=== PATIENT | female | born 1965 | race Caucasian/White ===

== ENCOUNTER → 2017-01-20 | Day surgery (SDC) | payer BC ==
[~2017-01-20] MED LIST: GLUC1TAB44 PO; HYDROmorphone 2 MG/ML VIAL IV PRN; IV RINGERS,LACTATED 1000ML 1,000 ML IV SCH; LIDOCAINE 1% PF 2 ML VIAL. ID PRN; MORPHINE SULFATE 2 MG/ML DISP.SYRIN. IV PRN; ONDANSETRON PF 4 MG/2 ML VIAL. IV PRN; PROCHLORPERAZINE 10 MG/2 ML VIAL. IV PRN; PROPOFOL 20 ML IV ONE; fentaNYL PF VIAL 100 MCG/2 ML VIAL IV PRN
--- NOTE | 2017-01-20 14:06 | PDOC1 ---
History and Physical Date of Admission Date of Admission DATE: 01/20/17 TIME: 14:02 History of Present Illness History of Present Illness 51 y/o female with h/o colon polyps. Last exam 2011; w/o complaints. Past Medical History Musculoskeletal: Osteoarthritis Past Surgical History Past Surgical History: Other (D and C, hemorrhoidectomy) Family History Family History: Cancer (breast, pancreas), Coronary Artery Disease, Diabetes Social History Smoke: No ALCOHOL: occassional Drugs: None Current Medications Current Medications Current Medications Ondansetron HCl (Zofran) 4 mg PRN Q6HRS PRN IV NAUSEA/VOMITING; Start at 07:00; Stop 01/21/17 at 06:59 Fentanyl Citrate (Fentanyl 2ml Vial) 25 mcg PRN Q5MIN PRN IV MILD PAIN; Start 01/20/17 at 07:00; Stop 01/21/17 at 06:59 Fentanyl Citrate (Fentanyl 2ml Vial) 50 mcg PRN Q5MIN PRN IV MODERATE PAIN; Start 01/20/17 at 07:00; Stop 01/21/17 at 06:59 Morphine Sulfate 1 mg PRN Q10MIN PRN IV SEVERE PAIN; Start 01/20/17 at 07:00; Stop 01/21/17 at 06:59 Ringer's Solution 1,000 ml @ 30 mls/hr Q24H IV Last administered on t 13:27; Start 01/20/17 at 07:00; Stop 01/20/17 at 18:59 Lidocaine HCl (Xylocaine-Mpf 1% Vial) 2 ml PRN 1X PRN ID PRIOR TO IV START; Start 01/20/17 at 07:00; Stop 01/21/17 at 06:59 Hydromorphone HCl (Dilaudid) 0.5 mg PRN Q10MIN PRN IV SEV PAIN, Second choice; Start 01/20/17 at 07:00; Stop 01/21/17 at 06:59 Prochlorperazine Edisylate (Compazine) 5 mg PACU PRN PRN IV NAUSEA, MRX1; Start 01/20/17 at 07:00; Stop 01/21/17 at 06:59 Ringer's Solution 1,000 ml @ 75 mls/hr [id number] IV ; Start 01/20/17 at 13:15; Stop 01/21/17 at 13:14 Propofol 20 ml @ As Directed STK-MED ONCE IV ; Start 01/20/17 at 13:54; Stop 01/20/17 at 13:55; Status DC Propofol 20 ml @ As Directed STK-MED ONCE IV ; Start 01/20/17 at 13:54; Stop 01/20/17 at 13:55; Status DC Active Scripts Active Reported Seqigbj-Zncfm-Cmz Complex Cplt (Gluc/Presley-Msm#1/Vit C/Jarrod/Bor) 1 Each Tablet 1 Each PO DAILY Allergies Allergies: Coded Allergies: No Known Drug Allergies (Unverified , 01/20/17) ROS Review of System Negative Physical Exam General: Alert, Oriented X3, Cooperative, No acute distress Lungs: Clear to auscultation Heart: S1S2, RRR, no gallops, no murmurs Abdomen: Normal bowel sounds, Soft, No tenderness, No hepatosplenomegaly, No masses Rectal Exam: deferred Extremities: No cyanosis, No edema Skin: No significant lesion Neuro: Normal speech, Strength at 5/5 X4 ext, Normal tone, Sensation intact, Cranial nerves 3-12 NL, Reflexes 2+ Psych/Mental Status: Mental status NL, Mood NL Vitals Vitals Vital Signs Date Time Temp Pulse Resp B/P (MAP) Pulse Ox O2 Delivery O2 Flow Rate FiO2 01/20/17 13:20 97.8 68 18 98 97.8 VTE Prophylaxis Ordered VTE Prophylaxis Devices: No VTE Pharmacological Prophylaxi: No Assessment/Plan Assessment/Plan IMP: H/o polyps, due for surveillance. PLAN: colonoscopy WANDA SAENZ MD Jan 20, 2017 14:06
--- NOTE | 2017-01-20 14:31 | PDOC4 ---
PROCEDURE Procedure Colonoscopy Indication: H/o polyps/FH CRC (father). Meds: per anesthesia. Findings: EUGENE normal. Advanced to cecum. Mucosa normal. Occasional diverticula, sigmoid. No polyps , masses. Internal hemorrhoids on retroflex. Raissa. well. IMP: Diverticulosis Internal hemorrhoids. Negative surveillance exam. PLAN: Resume home meds and diet. F/u prn. Repeat exam in 5 years. WANDA SAENZ MD Jan 20, 2017 14:31
[2017-01-20 14:58] VITALS: BP 125/80
== END | disposition home or self-care (01) ==
LOC: ENDOS 12:58
PROVIDERS: ATTEND Internal Medicine Gastroenterology
DX: Z09 Encounter for follow-up examination after completed treatment for conditions other than malignant neoplasm (principal); Z87.19 Personal history of other diseases of the digestive system; K64.8 Other hemorrhoids; K57.30 Diverticulosis of large intestine without perforation or abscess without bleeding; Z80.0 Family history of malignant neoplasm of digestive organs; M19.91 Primary osteoarthritis, unspecified site; Z80.3 Family history of malignant neoplasm of breast; Z83.3 Family history of diabetes mellitus
CPT/HCPCS: 45378; J2704